=== PATIENT | female | born 1995 | race Caucasian/White ===

== ENCOUNTER → 2018-08-07 | Outpatient (CLI) | payer OTHER ==
[~2018-08-07] MED LIST: Amoxicillin500 MG PO; Augmentin 875-1 EACH PO; BUPR75; BUTASPCAF PO; CEPH500 PO; CETI5 PO; Citalopram HBr20 MG; DOCU100 PO; Esgic Tablet1 EACH PO; HYDACE5 PO; HYDR1TAB94 PO; HYDR25SUP PR; IBUP600 PO; IBUP800 PO; IRON150C PO; Loperamide2 MG PO; MEDR150I IM; MULVITMIND PO; NAPR375 PO; OXYACE5T PO; Prazosin HCl1 MG; Prilosec Otc20 MG PO; RANI150 PO; RXTRAM50 PO; SERT25 PO; SERT50 PO; Seasonique 0.11 EACH PO; TRAM50 PO; Verotin-Gr Cap1 EACH PO; Zofran Odt4 MG PO; Zofran Odt4 MG SL; Zofran4 MG PO
[2018-08-10 01:09] LABS: CHLAMYDIA TRACHOMATIS, NAA Negative (Negative); NEISSERIA GONORRHOEAE, NAA Negative (Negative)
== END | disposition home or self-care (01) ==
LOC: LAB 19:11 → LAB SHORT 19:11
PROVIDERS: Obstetrics & Gynecology
DX: Z11.3 Encounter for screening for infections with a predominantly sexual mode of transmission (principal)
CPT/HCPCS: 87491; 87591